=== PATIENT | female | born 1935 | race Caucasian/White ===

== ENCOUNTER 2017-01-07 12:29 | Emergency (ER) | payer OTHER ==
[~2017-01-07] VITALS: Wt 43.9 kg
[~2017-01-07 12:29] MED LIST: ALEN5TAB3 PO; IBUP-1542 PO; TRAM50TA2 PO
--- NOTE | 2017-01-07 15:37 | ERA ---
ER Documentation Chief Complaint Date/Time DATE: 01/07/17 TIME: 15:36 Chief Complaint NAUSEA AND VOMTING WITH MILD ABD PAIN MILD DIARRHEA AND DIZZINESS HPI The patient is a 81-year-old female, presenting to the ER because of nausea vomiting. She vomits mostly mucus, complaints of 2 loose bowel movement. She denies syncope, near syncope, neck pain, chest pain, dyspnea, abdominal pain, dysuria. She does not smoke or drink Past medical history: Osteoporosis Past surgical history: None ROS All systems reviewed and are negative except as per history of present illness. Medications Home Meds Active Scripts Ondansetron (Ondansetron Odt) 4 Mg Tab.rapdis, 4 MG PO Q6H Y for NAUSEA AND/OR VOMITING, #10 TAB Prov:DHEERAJ PAREDES MD 01/07/17 Reported Medications Alendronate Sodium* (Fosamax*) 70 Mg Tablet, 70 MG PO Q14D, #4 TAB 01/07/17 Discontinued Reported Medications Alendronate Sodium* (Alendronate Sodium*) Unknown Strength Tablet, PO DAILY, # 30 TAB 03/19/16 Ibuprofen* (Motrin*) Unknown Strength Tab, PO Q6, #30 TAB 03/19/16 Discontinued Scripts Tramadol HCl (Tramadol HCl) 50 Mg Tablet, 50 MG PO Q6 Y for PAIN, #20 TAB Prov:JASMYNE SPAIN NP 03/19/16 Ibuprofen* (Motrin*) 600 Mg Tab, 600 MG PO Q6H Y for PAIN AND OR ELEVATED TEMP, #30 TAB Prov:JASMYNE SPAIN NP 03/19/16 Allergies Allergies: Coded Allergies: No Known Allergy (Unverified , 01/07/17) PMhx/Soc History of Surgery: No Anesthesia Reaction: No Hx Neurological Disorder: No Hx Respiratory Disorders: No Hx Cardiac Disorders: No Hx Psychiatric Problems: No Hx Miscellaneous Medical Probl: Yes (osteoporosis) Hx Alcohol Use: No Hx Substance Use: No Hx Tobacco Use: No Physical Exam Vitals Vital Signs Date Time Temp Pulse Resp B/P Pulse Ox O2 Delivery O2 Flow Rate FiO2 01/07/17 17:57 98.3 78 20 112/57 98 Room Air 01/07/17 12:31 98.3 70 21 111/58 97 Physical Exam Const: No acute distress. Head: Atraumatic. Eyes: Normal Conjunctiva. ENT: Normal External Ears, Nose and Mouth. Neck: Full range of motion. No meningismus. Resp: Clear to auscultation bilaterally. Cardio: Regular rate and rhythm, no murmurs. Abd: Soft, non distended, normal bowel sounds, non tender. Skin: No petechiae or rashes. Back: No midline or flank tenderness. Ext: No cyanosis, or edema. Neur: Awake and alert. No focal deficit Psych: Normal Mood and Affect. Result Diagram: 01/07/17 1610 01/07/17 1610 Results 24 hrs Laboratory Tests Test 01/07/17 16:10 01/07/17 16:11 White Blood Count 8.310^3/ul Red Blood Count 4.1210^6/ul Hemoglobin 13.1g/dl Hematocrit 40.4% Mean Corpuscular Volume 98.1fl Mean Corpuscular Hemoglobin 31.8pg Mean Corpuscular Hemoglobin Concent 32.4g/dl Red Cell Distribution Width 13.1% Platelet Count 87327^3/UL Mean Platelet Volume 11.0fl Neutrophils % 90.5% Lymphocytes % 6.1% Monocytes % 2.9% Eosinophils % 0.1% Basophils % 0.2% Nucleated Red Blood Cells % 0.0/100WBC Neutrophils # 7.510^3/ul Lymphocytes # 0.510^3/ul Monocytes # 0.210^3/ul Eosinophils # 0.010^3/ul Basophils # 0.010^3/ul Nucleated Red Blood Cells # 0.010^3/ul Prothrombin Time 12.6Sec Prothrombin Time Ratio 1.0 INR International Normalized Ratio 0.94 Activated Partial Thromboplast Time 27.0Sec Sodium Level 140mmol/L Potassium Level 4.2mmol/L Chloride Level 106mmol/L Carbon Dioxide Level 27mmol/L Anion Gap 11 Blood Urea Nitrogen 21mg/dl Creatinine 0.74mg/dl Glucose Level 106mg/dl Calcium Level 9.3mg/dl Total Bilirubin 0.9mg/dl Direct Bilirubin 0.00mg/dl Indirect Bilirubin 0.9mg/dl Aspartate Amino Transf (AST/SGOT) 36IU/L Alanine Aminotransferase (ALT/SGPT) 24IU/L Alkaline Phosphatase 122IU/L Total Protein 7.2g/dl Albumin 4.1g/dl Globulin 3.10g/dl Albumin/Globulin Ratio 1.32 Lipase 147U/L Bedside Urine pH (LAB) 6.5 Bedside Urine Protein (LAB) Negative Bedside Urine Glucose (UA) Negative Bedside Urine Ketones (LAB) 1+ Bedside Urine Blood Trace-intact Bedside Urine Nitrite (LAB) Negative Bedside Urine Leukocyte Esterase (L Negative Current Medications Medications (Trade) Dose Ordered Sig/Perla Route PRN Reason Start Time Stop Time Status Last Admin Dose Admin Sodium Chloride (NS) 500 ml @ 500 mls/hr Q1H ONCE IV 01/07/17 16:00 01/07/17 16:59 DC 01/07/17 16:03 Ondansetron HCl (Zofran Inj) 4 mg ONCE STAT IV 01/07/17 15:42 01/07/17 15:43 DC 01/07/17 16:03 Procedures/MDM MEDICAL MAKING DECISION: The patient is a 81-year-old female, presenting with acute vomiting and diarrhea, acute dehydration. She was treated with 500 mm normal saline for acute dehydration and Zofran formula IV for nausea with good response.. The differential diagnoses considered include but are not limited to cholelithiasis, cholecystitis, cystitis, pancreatitis, hepatitis, gastritis, peptic ulcer disease, gastric ulcer, appendicitis, diverticulitis, cholangitis, choledocholithiasis, partial small bowel obstruction. Departure Diagnosis: Primary Impression: Vomiting and diarrhea Additional Impression: Dehydration Condition: Good Comments She was discharged with Zofran ODT I discussed the findings with the patient. I advised the patient to follow-up with the primary physician in about 1-2 days, sooner if needed and return if any concern. DHEERAJ PAREDES MD Jan 07, 2017 15:37
[2017-01-07] MEDS ORDERED: ONDANSETRON 4 MG INJ IV STA (15:42)
[2017-01-07] MEDS ORDERED: SOD CHLORIDE 0.9% 500 ML IV ONE (16:00)
[2017-01-07 16:12] LABS: URINE BLOOD (Dip) POC Trace-intact (NEGATIVE)
[2017-01-07 16:14] LABS: ADD SCAN DIFF NO
[2017-01-07 16:17] LABS: ABNORMAL IP MESSAGE 1; BASOPHILS % 0.2 % (0.0-2.0); EOSINOPHILS % 0.1 % (0.0-7.0); HEMATOCRIT 40.4 % (37.0-47.0); HEMOGLOBIN 13.1 g/dl (12.0-16.0); LYMPHOCYTES # 0.5 10^3/ul (0.8-2.9); LYMPHOCYTES % 6.1 % (15.0-51.0); MEAN CORPUSCULAR HEMOGLOBIN 31.8 pg (29.0-33.0); MEAN CORPUSCULAR HGB CONC 32.4 g/dl (32.0-37.0); MEAN CORPUSCULAR VOLUME 98.1 fl (82.0-101.0); MONOCYTE # 0.2 10^3/ul (0.3-0.9); MONOCYTES % 2.9 % (0.0-11.0); NEUTROPHIL # 7.5 10^3/ul (1.6-7.5); NEUTROPHILS % 90.5 % (39.0-77.0); PLATELET COUNT 213 10^3/UL (140-415); RED BLOOD COUNT 4.12 10^6/ul (4.20-5.40); RED CELL DISTRIBUTION WIDTH 13.1 % (11.5-14.5); WHITE BLOOD COUNT 8.3 10^3/ul (4.8-10.8)
[2017-01-07 16:28] LABS: INR 0.94; PROTIME 12.6 Sec (12.2-14.2)
[2017-01-07 16:35] LABS: ALBUMIN 4.1 g/dl (3.3-4.9); POTASSIUM 4.2 mmol/L (3.5-5.1)
[2017-01-07 16:37] LABS: CREATININE 0.74 mg/dl (0.44-1.00)
[2017-01-07 16:38] LABS: ALBUMIN/GLOBULIN RATIO 1.32; BILIRUBIN,INDIRECT 0.9 mg/dl (0-1.1); BILIRUBIN,TOTAL 0.9 mg/dl (0.2-1.3); CALCIUM 9.3 mg/dl (8.4-10.2); TOTAL PROTEIN 7.2 g/dl (6.1-8.1)
[2017-01-07] MEDS ORDERED: ALEN70TA30 PO (16:41)
[2017-01-07] MEDS ORDERED: ONDA4TAB14 PO (17:48)
[2017-01-07 17:57] VITALS: BP 112/57; PULSE 78; RESP 20; TEMP 98.3
== END 2017-01-07 17:58 | disposition home or self-care (01) ==
LOC: E/R 12:29
DX: R11.10 Vomiting, unspecified (principal); R40.2252 Coma scale, best verbal response, oriented, at arrival to emergency department; R19.7 Diarrhea, unspecified; E86.0 Dehydration; R40.2142 Coma scale, eyes open, spontaneous, at arrival to emergency department; R40.2362 Coma scale, best motor response, obeys commands, at arrival to emergency department; R10.9 Unspecified abdominal pain
CPT/HCPCS: 36415; 80053; 81003; 83690; 85025; 85610; 85730; 96374; 99284; J2405; J7040

== ENCOUNTER 2017-10-03 22:38 | Emergency (ER) | payer OTHER ==
[~2017-10-03] VITALS: Ht 152.4 cm; Wt 47.1 kg
[~2017-10-03 22:38] MED LIST changes: -ALEN5TAB3 PO; +ALEN70TA30 PO; -IBUP-1542 PO; +ONDA4TAB14 PO; -TRAM50TA2 PO
[2017-10-03 22:43] VITALS: Ht 152.4 cm; Wt 47.1 kg
[2017-10-04 00:41] LABS: URINE BLOOD (Dip) POC Trace-intact (NEGATIVE)
--- NOTE | 2017-10-04 01:00 | ERD ---
ER Documentation Chief Complaint Chief Complaint weakness x 1 day, vomiting HPI The patient is a 82-year-old female, presenting to the ER because of generalized weakness, dizziness, vomiting for 1 day, mostly mucus. She denies syncope, near syncope, neck pain, chest pain, dyspnea, diarrhea. She does not smoke nor drink Past medical history: Osteoporosis Surgical History: None ROS All systems reviewed and are negative except as per history of present illness. Medications Home Meds Active Scripts Meclizine Hcl* (Antivert*) 12.5 Mg Tab, 25 MG PO Q6H Y for DIZZINESS, #20 TAB Prov:DHEERAJ PAREDES MD 10/04/17 Reported Medications Calcium Citrate/Vitamin D (Citracal-Vitamin D 200 MG-250) 1 Each Tablet, 1 EACH PO BID, TAB 10/04/17 Multivitamins* (Theragran*) 1 Tab Tab, 1 TAB PO DAILY, TAB 10/04/17 Alendronate Sodium* (Fosamax*) 70 Mg Tablet, 70 MG PO Q14D, #4 TAB 01/07/17 Discontinued Scripts Ondansetron (Ondansetron Odt) 4 Mg Tab.rapdis, 4 MG PO Q6H Y for NAUSEA AND/OR VOMITING, #10 TAB Prov:DHEERAJ PAREDES MD 01/07/17 Allergies Allergies: Coded Allergies: No Known Allergy (Unverified , 01/07/17) PMhx/Soc History of Surgery: No Anesthesia Reaction: No Hx Neurological Disorder: No Hx Respiratory Disorders: No Hx Cardiac Disorders: No Hx Psychiatric Problems: No Hx Miscellaneous Medical Probl: Yes (THROMBOSIS ) Hx Alcohol Use: No Hx Substance Use: No Hx Tobacco Use: No Smoking Status: Never smoker Physical Exam Vitals Vital Signs Date Time Temp Pulse Resp B/P Pulse Ox O2 Delivery O2 Flow Rate FiO2 10/04/17 05:05 98.3 89 16 100/71 Room Air 10/04/17 02:31 97.8 73 13 113/77 100 Nasal Cannula 3.0 10/04/17 01:08 97.8 79 20 114/83 Room Air 10/04/17 00:51 97.8 84 17 114/83 Room Air 10/03/17 22:43 97.7 97 20 190/89 100 Physical Exam Const: No acute distress. Head: Atraumatic. Eyes: Normal Conjunctiva. ENT: Normal External Ears, Nose and Mouth. Neck: Full range of motion. No meningismus. Resp: Clear to auscultation bilaterally. Cardio: Regular rate and rhythm. Abd: Soft, non distended, normal bowel sounds, non tender. Skin: No petechiae or rashes. Back: No midline or flank tenderness. Ext: No cyanosis, or edema. Neur: Awake and alert. No focal deficit Psych: Normal Mood and Affect. Result Diagram: 10/04/17 0130 10/04/17 0130 Results 24 hrs Laboratory Tests Test 10/04/17 00:41 10/04/17 01:30 Bedside Urine pH (LAB) 8.5 Bedside Urine Protein (LAB) 1+ Bedside Urine Glucose (UA) Negative Bedside Urine Ketones (LAB) Trace Bedside Urine Blood Trace-intact Bedside Urine Nitrite (LAB) Negative Bedside Urine Leukocyte Esterase (L Negative White Blood Count 4.910^3/ul Red Blood Count 4.0710^6/ul Hemoglobin 13.5g/dl Hematocrit 38.8% Mean Corpuscular Volume 95.3fl Mean Corpuscular Hemoglobin 33.2pg Mean Corpuscular Hemoglobin Concent 34.8g/dl Red Cell Distribution Width 12.8% Platelet Count 59636^3/UL Mean Platelet Volume 12.1fl Neutrophils % 85.4% Lymphocytes % 10.1% Monocytes % 3.7% Eosinophils % 0.2% Basophils % 0.4% Nucleated Red Blood Cells % 0.0/100WBC Neutrophils # 4.210^3/ul Lymphocytes # 0.510^3/ul Monocytes # 0.210^3/ul Eosinophils # 0.010^3/ul Basophils # 0.010^3/ul Nucleated Red Blood Cells # 0.010^3/ul Sodium Level 141mmol/L Potassium Level 3.9mmol/L Chloride Level 104mmol/L Carbon Dioxide Level 26mmol/L Anion Gap 15 Blood Urea Nitrogen 22mg/dl Creatinine 0.81mg/dl Glucose Level 137mg/dl Calcium Level 9.7mg/dl Total Bilirubin 0.8mg/dl Direct Bilirubin 0.00mg/dl Indirect Bilirubin 0.8mg/dl Aspartate Amino Transf (AST/SGOT) 35IU/L Alanine Aminotransferase (ALT/SGPT) 40IU/L Alkaline Phosphatase 120IU/L Total Protein 7.3g/dl Albumin 3.9g/dl Globulin 3.40g/dl Albumin/Globulin Ratio 1.14 Lipase 182U/L Current Medications Medications (Trade) Dose Ordered Sig/Perla Route PRN Reason Start Time Stop Time Status Last Admin Dose Admin Ondansetron HCl 4 mg 4 mg ONCE STAT IV 10/04/17 01:13 10/04/17 01:15 DC 10/04/17 01:36 Sodium Chloride (NS) 500 ml @ 500 mls/hr Q1H ONCE IV 10/04/17 01:30 10/04/17 02:29 DC 10/04/17 01:36 Meclizine HCl (Antivert) 25 mg ONCE ONCE PO 10/04/17 04:30 10/04/17 04:31 DC 10/04/17 04:55 Procedures/[place] [id number] Radiology Main Line: [phone] DIAGNOSTIC IMAGING REPORT Patient: SHARONDA VANCE : 1935 Age: 82 Sex: F [id number] DOS: 10/04/17 0113 Ordering MD: DHEERAJ PAREDES MD Location: E/R Room/Bed: PROCEDURE: CT Brain without contrast. CLINICAL INDICATION: Dizziness TECHNIQUE: A CT of the brain was performed on a GE 64-slice CT scanner utilizing axial imaging from the skull base through the vertex without IV contrast. Multiplanar reformatted images were made. Images were reviewed on a PACS workstation. The CTDIvol is 43.16 mGy and the DLP is 720.23 mGycm. One or more of the following dose reduction techniques were used: automated exposure control, adjustment of the mA and/or kV according to patient size, or use of iterative reconstruction technique. DICOM images are available. COMPARISON: None FINDINGS: There are small bilateral frontal subdural hygromas or chronic hematomas. There is no intracranial hemorrhage, mass effect, or midline shift. The ventricles and sulci are normal in size and configuration. There is mild periventricular white matter hypodensity. The gomez white matter differentiation appears well- preserved. The brainstem and posterior fossa are normal. The visualized paranasal sinuses and osseous structures are grossly unremarkable. The intracranial internal carotid arteries are calcified. IMPRESSION: 1. No evidence of acute intracranial pathology. 2. 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 3. Mild microvascular ischemic changes. RPTAT: HCNS Kristie Birmingham Physician Date Time Electronically viewed and signed by Kristie Birmingham Physician on 10/04/2017 03: 17 CS/ CC: DHEERAJ PAREDES MD MEDICAL MAKING DECISION: This is an 82-year-old female, presenting with acute dizziness of unclear etiology, acute dehydration. She was treated with Antivert 25 mg IV for dizziness, Zofran formulary IV for nausea and 500 mL normal saline for clinical dehydration with good response The differential diagnoses considered include but are not limited to central causes such as cerebellar infarct, cerebellar hemorrhage, cerebellar tumor, acoustic neuroma, peripheral causes such as benign positional vertigo, labyrinthitis, medication, Meniere's disease. Departure Diagnosis: Primary Impression: Dizziness Additional Impression: Dehydration Condition: Good Comments She was discharged with Antivert The patient's blood pressure was elevated (>120/80) but appears stable without evidence of hypertension emergency or urgency. The patient was counseled about the risks of hypertension and urged to pursue outpatient monitoring and therapy within a week with their primary care physician. I discussed the findings with the patient. I advised the patient to follow-up with the primary physician in about 1-2 days, sooner if needed and return if any concern. Disclaimer: Inadvertent spelling and grammatical errors are likely due to EHR/ dictation software use and do not reflect on the overall quality of patient care. Also, please note that the electronic time recorded on this note does not necessarily reflect the actual time of the patient encounter. DHEERAJ PAREDES MD Oct 04, 2017 01:00
[2017-10-04] MEDS ORDERED: ONDANSETRON 4 MG INJ IV STA (01:13)
[2017-10-04] MEDS ORDERED: SOD CHLORIDE 0.9% 500 ML IV ONE (01:30)
[2017-10-04 01:44] LABS: ABNORMAL IP MESSAGE 1; BASOPHILS % 0.4 % (0.0-2.0); EOSINOPHILS % 0.2 % (0.0-7.0); HEMATOCRIT 38.8 % (37.0-47.0); HEMOGLOBIN 13.5 g/dl (12.0-16.0); LYMPHOCYTES # 0.5 10^3/ul (0.8-2.9); LYMPHOCYTES % 10.1 % (15.0-51.0); MEAN CORPUSCULAR HEMOGLOBIN 33.2 pg (29.0-33.0); MEAN CORPUSCULAR HGB CONC 34.8 g/dl (32.0-37.0); MEAN CORPUSCULAR VOLUME 95.3 fl (82.0-101.0); MEAN PLATELET VOLUME 12.1 fl (7.4-10.4); MONOCYTE # 0.2 10^3/ul (0.3-0.9); MONOCYTES % 3.7 % (0.0-11.0); NEUTROPHIL # 4.2 10^3/ul (1.6-7.5); NEUTROPHILS % 85.4 % (39.0-77.0); PLATELET COUNT 181 10^3/UL (140-415); RED BLOOD COUNT 4.07 10^6/ul (4.20-5.40); RED CELL DISTRIBUTION WIDTH 12.8 % (11.5-14.5); WHITE BLOOD COUNT 4.9 10^3/ul (4.8-10.8)
[2017-10-04 01:50] LABS: POSITIVE DIFF @See below
[2017-10-04 02:49] LABS: ALBUMIN 3.9 g/dl (3.3-4.9); ALBUMIN/GLOBULIN RATIO 1.14; BILIRUBIN,INDIRECT 0.8 mg/dl (0-1.1); BILIRUBIN,TOTAL 0.8 mg/dl (0.2-1.3); CALCIUM 9.7 mg/dl (8.4-10.2); CREATININE 0.81 mg/dl (0.44-1.00); POTASSIUM 3.9 mmol/L (3.5-5.1); TOTAL PROTEIN 7.3 g/dl (6.1-8.1)
--- NOTE | 2017-10-04 03:17 | RADRPT ---
PROCEDURE: CT Brain without contrast. CLINICAL INDICATION: Dizziness TECHNIQUE: A CT of the brain was performed on a GE 64-slice CT scanner utilizing axial imaging fr om the skull base through the vertex without IV contrast. Multiplanar reformatted images were made. Images were reviewed on a PACS workstation. The CTDIvol is 43.16 mGy and the DLP is 720.23 mGycm. One or more of the following dose reduction techniques were used: automated exposure control, adju stment of the mA and/or kV according to patient size, or use of iterative reconstruction technique. DICOM images are available. COMPARISON: None FINDINGS: There are small bilateral frontal subdural hygromas or chronic hematomas. There is no intracranial h emorrhage, mass effect, or midline shift. The ventricles and sulci are normal in size and configur ation. There is mild periventricular white matter hypodensity. The gomez white matter differentiation appears well-preserved. The brainstem and posterior fossa are normal. The visualized paranasal sinu ses and osseous structures are grossly unremarkable. The intracranial internal carotid arteries are calcified. IMPRESSION: 1. No evidence of acute intracranial pathology. 2. 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 3. Mild microvascular ischemic changes. RPTAT: HCNS Physician Anita Date Time Electronically viewed and signed by Physician Anita on 10/04/2017 03:17 CS/
[2017-10-04] MEDS ORDERED: CALC-143 PO (04:06)
[2017-10-04] MEDS ORDERED: MULTI PO (04:06)
[2017-10-04] MEDS ORDERED: MECL12.574 PO (04:25)
[2017-10-04] MEDS ORDERED: MECLIZINE 12.5 MG TAB PO ONE (04:30)
[2017-10-04 05:05] VITALS: BP 100/71; PULSE 89; RESP 16; TEMP 98.3
== END 2017-10-04 04:40 | disposition home or self-care (01) ==
LOC: E/R 22:38
DX: E86.0 Dehydration (principal); R42 Dizziness and giddiness; R40.2142 Coma scale, eyes open, spontaneous, at arrival to emergency department; R40.2252 Coma scale, best verbal response, oriented, at arrival to emergency department; R40.2362 Coma scale, best motor response, obeys commands, at arrival to emergency department
CPT/HCPCS: 36415; 70450; 80053; 81003; 83690; 85025; 96361; 96374; 99285; J2405; J7040